=== PATIENT | male | born 1995 | race Caucasian/White ===

== ENCOUNTER 2018-05-09 13:52 | Emergency (ER) | payer OTHER ==
--- NOTE | 2018-05-09 14:10 | EDPHY ---
H & P Time Seen by Provider: 05/09/18 13:59 HPI/ROS: CHIEF COMPLAINT: Right arm cast removal HISTORY OF PRESENT ILLNESS: The patient is a 23-year-old male who presents emergency department to have his right cast removed. Patient states he injured his right forearm in January. This required orthopedic surgery with fixation of his radius. Patient was subsequently arrested and is currently in long-term. Patient states he was supposed to have his cast taken off on April 12. At that time he was supposed to have an x-ray and if it seemed to be healing well he was to be placed in a Velcro splint. The patient missed his appointment due to incarceration. The patient has no numbness or tingling. No pain. He feels as though his injuries healing well. REVIEW OF SYSTEMS: Negative Past Medical/Surgical History: Includes right forearm fracture Social history: Patient is incarcerated Smoking Status: Current every day smoker Physical Exam: Vitals noted General Appearance: Alert and no distress. Head: Pupils equal. Normal. Respiratory: No respiratory distress. Cardiac: regular rate and rhythm. Extremities: Patient's right upper extremity has a short-arm cast in place. This is intact. There is no hand or arm swelling. No redness. Patient is neurovascular intact distally. Skin: No rashes or lesions. Neuro: Alert. Normal mood and affect. Constitutional: Initial Vital Signs Heart Rate 56 L 05/09/18 13:54 Respiratory Rate 16 05/09/18 13:54 Blood Pressure 141/100 H 05/09/18 13:54 O2 Sat (%) 96 05/09/18 13:54 O2 Delivery Mode Room Air Allergies/Adverse Reactions: No Known Allergies Allergy (Unverified 05/09/18 13:54) Home Medications: Medication Instructions Recorded NK [No Known Home Meds] 05/09/18 Medical Decision Making ED Course/Re-evaluation: In the emergency department I discussed possible etiologies with the patient. I answered all his questions. X-ray of his right forearm was ordered. Right forearm x-ray: Please refer the dictated report. Patient's injuries healing well Differential Diagnosis: My differential includes but is not limited to healing fracture, non fused bone , hardware failure, cellulitis, abscess Departure - Departure Disposition: Home, Routine, Self-Care Clinical Impression: Forearm injury Qualifiers: Encounter type: initial encounter Laterality: right Qualified Code(s): S59.917B - Unspecified injury of right forearm, initial encounter Condition: Good Instructions: Arm Pain (ED) Additional Instructions: Keep your splint in place for comfort. Return with increasing pain, numbness, weakness or any other concerns. Follow up with your orthopedic surgeon as directed postop. You have also been given contact information for the on-call orthopedic doctor in [place]. Referrals: Taras Myers MD [Medical Doctor] - 5-7 days, if not improved
[2018-05-09 15:04] VITALS: BP 138/89
== END 2018-05-09 15:03 | disposition home or self-care (01) ==
DX: Z47.89 Encounter for other orthopedic aftercare (principal); S52.501D Unspecified fracture of the lower end of right radius, subsequent encounter for closed fracture with routine healing; F17.200 Nicotine dependence, unspecified, uncomplicated
CPT/HCPCS: L3807